=== PATIENT | female | born 1990 | race American Indian/Alaskan Native ===

== ENCOUNTER 2021-02-05 17:47 | Emergency (ER) | payer SELFPAY ==
[2021-02-05] MEDS ORDERED: ACETAMINOPHEN 500 MG TAB PO ONE (23:46)
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
[2021-02-06 01:14] VITALS: BP 124/76
== END 2021-02-06 01:14 | disposition home or self-care (01) ==
LOC: ED 17:47
DX: S61.412A Laceration without foreign body of left hand, initial encounter (principal); Z91.041 Radiographic dye allergy status; Z98.890 Other specified postprocedural states; X58.XXXA Exposure to other specified factors, initial encounter; Y93.89 Activity, other specified; Y92.89 Other specified places as the place of occurrence of the external cause; Y99.8 Other external cause status